=== PATIENT | male | born 1975 | race African-American/Black ===

== ENCOUNTER 2021-02-05 14:36 | Emergency (ER) | payer SELFPAY ==
[~2021-02-05] VITALS: Ht 167.6 cm; Wt 62.0 kg
[2021-02-05] MEDS ORDERED: IV NORMAL SALINE 1,000ML 1,000 ML IV SCH (15:00)
[2021-02-05] MEDS ORDERED: FAMOTIDINE 20 MG/2 ML VIAL IVP ONE (15:00)
[2021-02-05] MEDS ORDERED: diphenhydrAMINE 50 MG/ML VIAL IV ONE (15:00)
[2021-02-05 15:28] LABS: BASO # 0.1 x10^3/uL (0.0-0.2); BASO % 1 % (0-3); EOS # 0.1 x10^3/uL (0.0-0.7); EOS % 1 % (0-3); HEMATOCRIT 40.9 % (39.0-53.0); LYMPH # 1.8 x10^3/uL (1.0-4.8); LYMPH % 31 % (24-48); MEAN CORPUSCULAR HEMOGLOBIN 33 pg (25-35); MEAN CORPUSCULAR HGB CONC 34 g/dL (31-37); MEAN CORPUSCULAR VOLUME 98 fL (79-100); MONO # 1.4 x10^3/uL (0.0-1.1); MONO % 25 % (0-9); NEUT # 2.4 x10^3uL (1.8-7.7); NEUT % 42 % (31-73); PLATELET COUNT 216 x10^3/uL (140-400); RED BLOOD COUNT 4.19 x10^6/uL (4.30-5.70); RED CELL DISTRIBUTION WIDTH 13.7 % (11.5-14.5); WHITE BLOOD COUNT 5.8 x10^3/uL (4.0-11.0)
--- NOTE | 2021-02-05 15:29 | PHYS DOC ---
Past History Past Medical History: Hypertension Past Surgical History: No Surgical History Alcohol Use: Occasionally General Adult EDM: Chief Complaint: ALLERGIC REACTION HPI: HPI: 45-year-old -[place] male past medical history of hypertension, daily alcohol and marijuana use, presents the ED with complaints of swelling to the lips that started early this morning patient woke up. Patient states he had a similar reaction few years ago due to blood pressure medication. Reports his blood pressure medicine has changed since then. Patient is in town from [place] visiting his aunt. States he drinks alcohol daily, usually 5 beers, does not go through 12 pack in 1 day. No history of allergic reaction that involved possible admission or intubation. Reports no known drug allergies. Review of Systems: Review of Systems: Constitutional: Denies fever or chills Eyes: Denies change in visual acuity HENT: Denies nasal congestion or sore throat Respiratory: Denies cough or shortness of breath Cardiovascular: Denies chest pain or syncope GI: Denies abdominal pain, nausea, vomiting, : Denies dysuria or hematuria Musculoskeletal: Denies back pain or joint pain Integument: Denies rash or diaphoresis Neurologic: Denies headache, neck pain, focal weakness or sensory changes Endocrine: Denies polyuria or polydipsia Psychiatric: Denies depression or anxiety Current Medications: Current Meds: Current Medications Medications (Trade) Dose Ordered Sig/Santosh Start Time Stop Time Status Last Admin Dose Admin Diphenhydramine HCl (Benadryl) 50 mg 1X ONCE 02/05/21 15:00 02/05/21 15:01 UNV Famotidine (Pepcid Vial) 20 mg 1X ONCE 02/05/21 15:00 02/05/21 15:01 UNV Sodium Chloride 1,000 ml @ 1,000 mls/hr Q1H 02/05/21 15:00 02/05/21 15:59 UNV Allergies: Allergies: Allergies Coded Allergies Type Severity Reaction Last Updated Verified No Known Drug Allergies 02/05/21 No Physical Exam: PE: Constitutional: no acute distress, non-toxic appearance, thin HENT: Normocephalic, atraumatic, both upper and lower lips very swollen, large mouth and large oral (but patent) cavity, very small 3 mm uvula, no swelling of tongue or oropharynx Eyes: PERRLA, EOMI, arcus senilus bl, conjunctiva normal, no discharge, no jaundice Neck: Normal range of motion, supple, Cardiovascular: S1/2 present, mild tachycardia 104 bpm, Lungs & Thorax: Speaking in full sentences, bilateral equal chest rise, no tachypnea or increased work of breathing, no muffled speech, no drooling/spitting. Controlling secretions well Abdomen: soft, no tenderness, Skin: Warm, dry, no erythema, no rash or uriticaria Extremities: No tenderness, no cyanosis, Neurologic: Alert and oriented X 3, normal motor function, normal sensory function, no focal deficits noted, steady gait Psychologic: mood -very calm/chill appearance, happy combination of alcohol intoxication and marijuana Current Patient Data: Vital Signs: Vital Signs Date Time Temp Pulse Resp B/P (MAP) Pulse Ox O2 Delivery O2 Flow Rate FiO2 02/05/21 14:45 98.2 104 16 143/86 (105) 95 Room Air EKG: EKG: [] Radiology/Procedures: Radiology/Procedures: [] Heart Score: C/O Chest Pain: No Risk Factors: Risk Factors: DM, Current or recent (<one month) smoker, HTN, HLP, family history of CAD, obesity. Risk Scores: Score 0 - 3: 2.5% MACE over next 6 weeks - Discharge Home Score 4 - 6: 20.3% MACE over next 6 weeks - Admit for Clinical Observation Score 7 - 10: 72.7% MACE over next 6 weeks - Early Invasive Strategies Course & Med Decision Making: Course & Med Decision Making Pertinent Labs and Imaging studies reviewed. (See chart for details) Concern for ALVERTO inhibitor induced angioedema, bradykinen on ddx (pts' 2nd episode of angioedema totay). No response in ED after monitoring with TXA (bradykinin induced?), Benadryl, phentermine and dexamethasone. Heart rate of 104 arrival, likely related to patient's dehydration/alcohol intoxication. IM epinephrine given in ED and will transfer to [facility] for close monitoring of airway. Patient was stable at time of transfer acceptance with no acute events during my care. Patient with no further speech changes, stridor, drooling, spitting secretions, or head/neck swelling other than the lips.Patient clinically sober and ED ambulates with a steady gait and agrees with plan for transfer - aunt also in agreement (pt intoxicated vs low IQ? - unsure if there's some cognitive delay).. I have spoken with the patient and/or caregivers. I have explained the patient 's condition, diagnosis and treatment plan based on the information available to me at this time. I have answered the patient's and/or caregivers questions and answered any concerns. The patient and/or caregivers have as good an understanding of the patient's diagnosis, condition and treatment plan as can be expected at this point. The patient has been stabilized within the capability of the emergency department. The patient will be transported for further care and management or will be moved to an observation or inpatient service. I have communicated with the staff or medical practitioner taking over this patient's care. Critical Care: Authorized and Performed by: Angelica Guerrero DO Total critical care time: approximately 30 minutes Due to a high probability of clinically significant, life threatening deterioration, the patient required my highest level of preparedness to interv jeanette emergently and I personally spent this critical care time directly and personally managing the patient. This critical care time included obtaining a history; examining the patient; pulse oximetry; ventilator management if necessary; ordering and review of studies; arranging urgent treatment with development of a management plan; evaluation of patient's response to treatment; frequent reassessment; discussion with patient/family; and, discussions with other providers. This critical care time was performed to assess and manage the high probability of imminent, life-threatening deterioration that could result in multi-organ failure. It was exclusive of separately billable procedures and treating other patients and teaching time. Please see MDM section and the rest of the note for further information on patient assessment and treatment. Amol Disclaimer: Amlo Disclaimer: This electronic medical record was generated, in whole or in part, using a voice recognition dictation system. Departure Departure: Impression: Primary Impression: ALVERTO inhibitor-aggravated angioedema Additional Impressions: Alcohol intoxication Elevated liver function tests Disposition: 02 [facility]ORT TERM [facility] (to [facility] ICU, accepted by Dr. Calvo) Admitting Physician: Other ([facility], Dr. Calvo) Condition: CRITICAL Referrals: PCP,UNKNOWN (PCP) ANGELICA GUERRERO DO February 05, 2021 15:28
[2021-02-05] MEDS ORDERED: DEXAMETHASONE SOD PHOS 10 MG/ML VIAL. IV ONE (15:30)
[2021-02-05] MEDS ORDERED: TRANEXAMIC ACID 1,000 MG in IV NORMAL SALINE 250ML 250 ML IV ONE (15:30)
[2021-02-05 15:40] LABS: CALCIUM 8.9 mg/dL (8.5-10.1); CREATININE 0.9 mg/dL (0.7-1.3); GFR 110.4; POTASSIUM 4.5 mmol/L (3.5-5.1)
[2021-02-05 15:46] LABS: ALBUMIN 4.3 g/dL (3.4-5.0); ALBUMIN/GLOBULIN RATIO 0.8 (1.0-1.7); TOTAL BILIRUBIN 0.4 mg/dL (0.2-1.0); TOTAL PROTEIN 9.5 g/dL (6.4-8.2)
[2021-02-05] MEDS ORDERED: EPINEPHrine SYRINGE 1 MG/10 ML SYRINGE IM ONE (17:15)
[2021-02-05 18:31] VITALS: BP 126/91
== END 2021-02-05 19:37 | disposition admitted as inpatient to this hospital (09) ==
LOC: ER 14:36
DX: T78.3XXA Angioneurotic edema, initial encounter (principal); F10.129 Alcohol abuse with intoxication, unspecified; R79.89 Other specified abnormal findings of blood chemistry; I10 Essential (primary) hypertension; Y90.8 Blood alcohol level of 240 mg/100 ml or more
CPT/HCPCS: 36415; 80053; 85025; 96365; 96372; 96375; 99284; G0480; J0171; J1100; J1200; J3490; J7030; J7050